=== PATIENT | female | born 1990 | race African-American/Black ===

== ENCOUNTER 2021-03-15 22:04 | Emergency (ER) | payer SELFPAY ==
[2021-03-15 22:15] VITALS: BP 119/69; PULSE 83; TEMP 98.1; BMI 25.9
[2021-03-15] MEDS ORDERED: ACETAMINOPHEN 325 MG TABLET (FP) PO ONE (23:13)
[2021-03-15] MEDS ORDERED: diazePAM 5 MG TABLET PO ONE (23:13)
[2021-03-15] MEDS ORDERED: IBUPROFEN 400 MG TABLET (FP) PO ONE ×2 (23:13→23:26)
[2021-03-15] MEDS ORDERED: LIDOCAINE 5% TOPICAL PATCH TP ONE (23:13)
[2021-03-15] MEDS ORDERED: diazePAM 5 MG TABLET ONE (23:26)
[2021-03-15] MEDS ORDERED: ACETAMINOPHEN 325 MG TABLET (FP) ONE (23:26)
[2021-03-15] MEDS ORDERED: LIDOCAINE 5% TOPICAL PATCH ONE (23:27)
[2021-03-16] MEDS ORDERED: LIDOCAINE HCL 1%, 10 MG/ML (50 mL VIAL) INF ONE (00:48)
[2021-03-16] MEDS ORDERED: BUPIVACAINE HCL 0.25% 125 MG/50 ML VIAL INF ONE (00:54)
[2021-03-16] MEDS ORDERED: BUPIVACAINE HCL 50 ML ONE (00:55)
[2021-03-16] MEDS ORDERED: LIDOCAINE PATCH REMOVAL MC ONE (13:00)
== END 2021-03-16 02:53 | disposition home or self-care (01) ==
LOC: JER 22:04 → JERFT 22:04 → JER 03-16 02:53
DX: M54.2 Cervicalgia (principal)
CPT/HCPCS: 99283-25